=== PATIENT | female | born 1950 | race Caucasian/White ===

== ENCOUNTER → 2018-04-17 | Outpatient (CLI) | payer MEDICARE, OTHER ==
[~2018-04-17] MED LIST: ASPI81CH PO; BACL10 PO; DOCU100 PO; FISH1000 PO; Ferrous Sulfat325 M2 PO; Hair, Skin & N1 EACH PO; IBUP400 PO; LEVSOD100 PO; NAPR500 PO; OXYACE5T PO; SIMV40 PO; TRIHYD253A PO; Vitamin D400 UNI1 PO; WARF4 PO
== END | disposition home or self-care (01) ==
LOC: LAB EV 10:39 → LAB SHORT 10:39
DX: L03.032 Cellulitis of left toe (principal)
CPT/HCPCS: 87070; 87205

== ENCOUNTER → 2020-10-16 | Outpatient (CLI) | payer MEDICARE, OTHER ==
[~2020-10-16] MED LIST changes: +ACET325 PO; +ALLERCLEAR10 MG PO; +Aspir 8181 MG PO; +CEPH500 PO; +Cleocin HCl300 MG PO; +Crestor20 MG PO; +DYAZIDE 37.5-21 EACH PO; +ERYT.5TO BOTHEYES; +ESCI10 PO; +EUTHYROX125 MCG PO; -FISH1000 PO; +Fish Oil 10001000 MG PO; +GLUCOSAMINE/CHONDRO PO; -LEVSOD100 PO; +MIRALAX17 GM PO; +Norco 5-325 Ta1 EACH PO; +OXYC5 PO; +Oyster Shell C500 MG PO; -SIMV40 PO; +VALA500 PO
== END | disposition home or self-care (01) ==
LOC: LAB EV 15:09 → LAB 15:09
DX: Z20.828 Contact with and (suspected) exposure to other viral communicable diseases (principal)
CPT/HCPCS: U0003

== ENCOUNTER → 2022-10-11 | Outpatient (CLI) | payer MEDICARE, OTHER | END | disposition home or self-care (01) | LOC: PLD 08:03 → LAB SHORT 08:03 | DX: L30.8 Other specified dermatitis (principal) | CPT/HCPCS: 88305; 88312; 88313 ==

== ENCOUNTER 2024-07-28 13:27 | Emergency (ER) | payer MEDICARE, OTHER ==
[~2024-07-28] VITALS: Ht 160 cm; Wt 63.5 kg
[2024-07-28 14:46] VITALS: BP 111/94
[2024-07-28] MEDS ORDERED: Norco 5-325 Ta1 EACH PO (14:58)
== END 2024-07-28 15:32 | disposition home or self-care (01) ==
LOC: ER 13:27
DX: S70.02XA Contusion of left hip, initial encounter (principal); W18.30XA Fall on same level, unspecified, initial encounter; I10 Essential (primary) hypertension; F03.90 Unspecified dementia, unspecified severity, without behavioral disturbance, psychotic disturbance, mood disturbance, and anxiety; Z88.8 Allergy status to other drugs, medicaments and biological substances; Z79.899 Other long term (current) drug therapy; Z79.82 Long term (current) use of aspirin
CPT/HCPCS: 73502; 99283-25

== ENCOUNTER 2024-08-23 14:16 | Emergency (ER) | payer MEDICARE, OTHER ==
[~2024-08-23] VITALS: Ht 170.2 cm; Wt 65.8 kg
[2024-08-23 16:00] VITALS: BP 110/65
== END 2024-08-23 16:18 | disposition home or self-care (01) ==
LOC: ER 14:16
DX: S00.81XA Abrasion of other part of head, initial encounter (principal); M25.511 Pain in right shoulder; W18.30XA Fall on same level, unspecified, initial encounter; I10 Essential (primary) hypertension
CPT/HCPCS: 70450; 73030; 99284-25

== ENCOUNTER 2024-08-24 13:01 | Emergency (ER) | payer OTHER, MEDICARE ==
[~2024-08-24] VITALS: Ht 162.6 cm; Wt 59.0 kg
[2024-08-24 13:08] VITALS: BP 129/77
== END 2024-08-24 15:01 | disposition home or self-care (01) ==
LOC: ER 13:01
DX: S00.12XA Contusion of left eyelid and periocular area, initial encounter (principal); S00.83XA Contusion of other part of head, initial encounter; I10 Essential (primary) hypertension; W01.0XXA Fall on same level from slipping, tripping and stumbling without subsequent striking against object, initial encounter; Z79.82 Long term (current) use of aspirin; Z79.899 Other long term (current) drug therapy; Z88.8 Allergy status to other drugs, medicaments and biological substances
CPT/HCPCS: 70450; 72125; 99284-25

== ENCOUNTER 2024-09-17 07:18 | Emergency (ER) | payer OTHER, MEDICARE ==
[~2024-09-17] VITALS: Ht 157.5 cm; Wt 61.2 kg
[2024-09-17 08:15] VITALS: BP 122/68
== END 2024-09-17 08:42 | disposition home or self-care (01) ==
LOC: ER 07:18
DX: Z04.3 Encounter for examination and observation following other accident (principal); I10 Essential (primary) hypertension; E03.9 Hypothyroidism, unspecified; E78.5 Hyperlipidemia, unspecified; Z79.82 Long term (current) use of aspirin; Z79.899 Other long term (current) drug therapy; Z88.8 Allergy status to other drugs, medicaments and biological substances
CPT/HCPCS: 99283

== ENCOUNTER 2024-10-17 14:13 | Emergency (ER) | payer OTHER, MEDICARE ==
[~2024-10-17] VITALS: Ht 167.6 cm; Wt 65.8 kg
[2024-10-17] MEDS ORDERED: Haloperidol Lactate Inj. 5 MG/ML Injection IM ONE (14:35)
[2024-10-17 16:01] VITALS: BP 132/89
== END 2024-10-17 16:18 | disposition home or self-care (01) ==
LOC: ER 14:13
DX: Z04.3 Encounter for examination and observation following other accident (principal); M19.90 Unspecified osteoarthritis, unspecified site; I10 Essential (primary) hypertension; E03.9 Hypothyroidism, unspecified; E78.5 Hyperlipidemia, unspecified; Z79.82 Long term (current) use of aspirin; Z79.899 Other long term (current) drug therapy; Z88.8 Allergy status to other drugs, medicaments and biological substances
CPT/HCPCS: 70450; 72125; 96372; 99284-25; J1630

== ENCOUNTER 2024-10-21 13:57 | Emergency (ER) | payer MEDICARE, OTHER ==
[~2024-10-21] VITALS: Ht 170.2 cm; Wt 56.7 kg
[2024-10-21 15:22] VITALS: BP 133/95
== END 2024-10-21 16:00 | disposition home or self-care (01) ==
LOC: ER 13:57
DX: Z04.3 Encounter for examination and observation following other accident (principal); F03.90 Unspecified dementia, unspecified severity, without behavioral disturbance, psychotic disturbance, mood disturbance, and anxiety; M19.90 Unspecified osteoarthritis, unspecified site; E03.9 Hypothyroidism, unspecified; E78.5 Hyperlipidemia, unspecified; Z79.899 Other long term (current) drug therapy; Z88.8 Allergy status to other drugs, medicaments and biological substances
CPT/HCPCS: 99283